=== PATIENT | female | born 1975 | race Caucasian/White ===

== ENCOUNTER → 2020-09-17 15:40 | Outpatient (CLI) | payer OTHER, SELFPAY ==
--- NOTE | 2020-09-17 | DI.MRI.S_ITS ---
PROCEDURE: MR TMJ WO CON INDICATIONS: Bilateral TMJ pain and popping TECHNIQUE: Axial T1 spin echo, coronal and sagittal PD fast spin echo through the temporomandibular joints, in both the closed- and open-mouth positions. COMPARISON: None. FINDINGS: Image quality: Excellent. Right: Joint is normally aligned on closed and open-mouth positioning. The articular disc demonstrates a mildly irregular appearance, with increased fluid seen adjacent to the disc itself. On the closed mouth image, the disc demonstrates normal location. On the open mouth image, the disc appropriately capture. No bony erosions or osteophytes. Left: Joint is normally aligned on closed and open-mouth positioning. Articular disk demonstrates normal location and morphology. Degenerative changes are seen, with osteophyte formation of the mandibular condyle. 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 Early spurring can be seen of the LEFT mandibular condyle. Dictated by: Peter Zamora M.D. on 09/17/2020 at 15:48 Approved by: Peter Zamora M.D. on 09/17/2020 at 15:52
== END ==
PROVIDERS: Referring Provider Dentist Oral and Maxillofacial Surgery; Visit Provider Dentist Oral and Maxillofacial Surgery
DX: R68.84 Jaw pain (principal)
CPT/HCPCS: 70336